=== PATIENT | male | born 1965 | race Caucasian/White ===

== ENCOUNTER 2016-09-19 13:03 | Emergency (ER) | payer MEDICAID | END 2016-09-19 17:25 | disposition home or self-care (01) | LOC: D.ER 13:03 | DX: J06.9 Acute upper respiratory infection, unspecified (principal); J20.9 Acute bronchitis, unspecified; J44.1 Chronic obstructive pulmonary disease with (acute) exacerbation; I10 Essential (primary) hypertension; F17.200 Nicotine dependence, unspecified, uncomplicated ==

== ENCOUNTER 2017-09-12 13:34 | Emergency (ER) | payer SELFPAY ==
[2017-09-12 15:26] LABS: BASOPHILS 1.9 % (0-2); EOSINOPHILS 2.4 % (0-7); HEMATOCRIT 45.2 % (42.0-54.0); HEMOGLOBIN 14.3 g/dL (13.5-17.5); IMMATURE GRANULOCYTES 0.2 % (0-5); LYMPHOCYTES 27.3 % (15-50); MCHC 31.6 g/dL (31.0-37.0); MEAN PLATELET VOLUME 10.5 fL (7.4-10.4); MONOCYTES 11.5 % (2-11); NEUTROPHILS 56.7 % (40-80); PLATELET COUNT 270 10x3/uL (130-400); RBC 4.76 10x6/uL (4.20-6.10); RDW 14.8 % (11.5-14.5); WBC 8.4 10x3/uL (4.8-10.8)
[2017-09-12 15:38] LABS: ALBUMIN 3.7 g/dL (3.4-5.0); ALKALINE PHOSPHATASE 71 U/L (46-116); ALT (SGPT) 24 U/L (10-68); BILIRUBIN - TOTAL 0.26 mg/dL (0.2-1.3); CALC OSMOLALITY 278 mosm/kg (275-300); CALCIUM 8.8 mg/dL (8.5-10.1); CARBON DIOXIDE 32.9 mmol/L (21.0-32.0); CHLORIDE - SERUM 104 mmol/L (98-107); GLUCOSE 83 mg/dL (74-106); POTASSIUM - SERUM 3.8 mmol/L (3.5-5.1); PROTEIN - SERUM 7.1 g/dL (6.4-8.2); SODIUM 141 mmol/L (136-145); UREA NITROGEN 10 mg/dL (7-18); eGFR NON AFRICAN AMERICAN 83 mL/min (90-120)
== END 2017-09-12 17:25 | disposition home or self-care (01) ==
LOC: D.ER 13:34
PROVIDERS: Emergency Medicine
DX: R51 Headache (principal); M50.30 Other cervical disc degeneration, unspecified cervical region; J44.9 Chronic obstructive pulmonary disease, unspecified; I10 Essential (primary) hypertension

== ENCOUNTER → 2018-02-22 13:44 | Outpatient (CLI) | payer OTHER | END | disposition home or self-care (01) | LOC: D.RT 13:44 | DX: Z02.71 Encounter for disability determination (principal) ==

== ENCOUNTER → 2018-08-24 | Emergency (ER) | payer MEDICAID ==
[~2018-08-24] VITALS: Ht 172.7 cm; Wt 96.4 kg
[~2018-08-24] MED LIST: ALBUTEROL SULF8.5 GM INH; ALBUTEROL2.5 MG/3 M INH; BACLOFEN10 MG PO; CELEXA20 MG PO; CYCLOBENZAPRINE10 MG PO; IPRAT-ALBUT 0.5-3 ML UPD; NYAMYC60 GM TP; PHENERGAN DM SYR5 ML PO; SULFAMETHOXAZOL1 TA3 PO; TRAMADOL HCL E100 M1 PO; ULTRAM50 MG PO; ZESTORETIC 20-1 EACH PO
[2018-08-24 18:16] VITALS: Ht 172.7 cm; Wt 96.4 kg
[2018-08-24 19:23] LABS: BASOPHILS 0.3 % (0-2); EOSINOPHILS 1.4 % (0-7); HEMATOCRIT 40.9 % (42.0-54.0); HEMOGLOBIN 13.6 g/dL (13.5-17.5); IMMATURE GRANULOCYTES 0.1 % (0-5); LYMPHOCYTES 14.2 % (15-50); MCH 31.1 pg (26.0-34.0); MCHC 33.3 g/dL (31.0-37.0); MCV 93.6 fL (80.0-100.0); MEAN PLATELET VOLUME 10.4 fL (7.4-10.4); MONOCYTES 9.4 % (2-11); NEUTROPHILS 74.6 % (40-80); PLATELET COUNT 273 10x3/uL (130-400); RBC 4.37 10x6/uL (4.20-6.10); RDW 13.8 % (11.5-14.5); WBC 11.5 10x3/uL (4.8-10.8)
[2018-08-24 19:58] VITALS: BP 123/61
[2018-08-24 19:58] LABS: ALBUMIN 3.6 g/dL (3.4-5.0); ANION GAP 13.6 mmol/L (8-16); BILIRUBIN - TOTAL 0.22 mg/dL (0.2-1.3); CALCIUM 8.8 mg/dL (8.5-10.1); CARBON DIOXIDE 28.2 mmol/L (21.0-32.0); CREATININE - SERUM 1.2 mg/dL (0.6-1.3); POTASSIUM - SERUM 3.8 mmol/L (3.5-5.1); PROTEIN - SERUM 7.3 g/dL (6.4-8.2)
== END | disposition home or self-care (01) ==
LOC: D.ER 18:03
PROVIDERS: Emergency Medicine
DX: L03.317 Cellulitis of buttock (principal); B36.9 Superficial mycosis, unspecified; I10 Essential (primary) hypertension; J44.9 Chronic obstructive pulmonary disease, unspecified; F17.200 Nicotine dependence, unspecified, uncomplicated

== ENCOUNTER 2019-03-18 15:03 | Emergency (ER) | payer MEDICAID ==
[~2019-03-18] VITALS: Ht 172.7 cm; Wt 95.5 kg
[2019-03-18 15:10] VITALS: Ht 172.7 cm; Wt 95.5 kg
[2019-03-18] MEDS ORDERED: ROBAXIN500 MG PO ×2 (17:34→17:40)
[2019-03-18] MEDS ORDERED: TORADOL10 MG PO (17:34)
[2019-03-18 17:50] VITALS: BP 132/89
== END 2019-03-18 17:51 | disposition home or self-care (01) ==
LOC: D.ER 15:03
DX: M62.838 Other muscle spasm (principal); I10 Essential (primary) hypertension; J44.9 Chronic obstructive pulmonary disease, unspecified; F17.210 Nicotine dependence, cigarettes, uncomplicated

== ENCOUNTER 2019-11-08 10:18 | Inpatient (IN) | payer MEDICAID ==
[~2019-11-08] VITALS: Ht 172.7 cm; Wt 99.8 kg
[~2019-11-08 10:18] MED LIST changes: +ROBAXIN500 MG PO; +TORADOL10 MG PO
[2019-11-08 11:00] VITALS: BP 151/82
[2019-11-08 11:05] LABS: CALC OSMOLALITY 278 mosm/kg (275-300); CARBON DIOXIDE 39.3 mmol/L (21.0-32.0); CHLORIDE - SERUM 99 mmol/L (98-107); CREATININE - SERUM 1.1 mg/dL (0.6-1.3); GLUCOSE 104 mg/dL (74-106); POTASSIUM - SERUM 4.4 mmol/L (3.5-5.1); SODIUM 139 mmol/L (136-145); UREA NITROGEN 16 mg/dL (7-18); eGFR NON AFRICAN AMERICAN 73 mL/min (90-120)
[2019-11-08 11:11] LABS: BASOPHILS 0.6 % (0-2); EOSINOPHILS 0.4 % (0-7); HEMATOCRIT 48.5 % (42.0-54.0); HEMOGLOBIN 14.7 g/dL (13.5-17.5); IMMATURE GRANULOCYTES 0.2 % (0-5); LYMPHOCYTES 12.2 % (15-50); MCH 30.2 pg (26.0-34.0); MCHC 30.3 g/dL (31.0-37.0); MCV 99.8 fL (80.0-100.0); MEAN PLATELET VOLUME 10.2 fL (7.4-10.4); MONOCYTES 7.9 % (2-11); NEUTROPHILS 78.7 % (40-80); RBC 4.86 10x6/uL (4.20-6.10); RDW 15.1 % (11.5-14.5); WBC 13.4 10x3/uL (4.8-10.8)
[2019-11-08 11:13] LABS: APTT 24.6 SECONDS (22.8-39.4); INR 0.97 (0.85-1.17); PROTIME 12.9 SECONDS (11.6-15.0)
[2019-11-08 11:17] LABS: PLATELET COUNT 399 10x3/uL (130-400)
[2019-11-08 11:23] LABS: ALBUMIN 4.1 g/dL (3.4-5.0); ALKALINE PHOSPHATASE 69 U/L (30-120); ALT (SGPT) 24 U/L (10-68); BILIRUBIN - TOTAL 0.42 mg/dL (0.2-1.3); CKMB 2.2 U/L (0.0-3.6); CREATINE KINASE 129 UL (21-232); PRO BNP 480 pg/mL (0-125); PROTEIN - SERUM 7.3 g/dL (6.4-8.2)
[2019-11-08 11:24] LABS: TROPONIN-I < 0.017 ng/mL (0.000-0.060)
[2019-11-08 12:00] VITALS: BP 144/90; BP 148/93
--- NOTE | 2019-11-08 13:51 | NUR ---
RECEIVED PT FROM ER. PT IS AAO AND UP AD KAMILA. CALL LIGHT W/I REACH. RR EVEN AND UNLABORED ON 3L 02. BIPAP AT BEDSIDE. NO S/S OF DISTRESS NOTED. PT DENIES ANY NEEDS. PT ORIENTED TO ROOM. WILL CTM.
[2019-11-08 14:45] VITALS: BP 145/64; BMI 33.5
[2019-11-08 16:00] VITALS: BP 137/83
--- NOTE | 2019-11-08 19:44 | NUR ---
PT LYING IN BED AWAKE ALERT AND ORIENTED X4. NO SIGNS OF DISTRESS NOTED. RESPIRATORY IS AT BEDSIDE. CALL LIGHT WITH IN REACH WILL CONTINUE TO MONITOR.
[2019-11-08 20:00] VITALS: BP 127/41
[2019-11-09 04:00] VITALS: BP 124/67; BP 145/72
--- NOTE | 2019-11-09 05:23 | NUR ---
UA COLLECTED AND SENT TO LAB. BI-PAP ON. CALL LIGHT WITH IN REACH
[2019-11-09 06:08] LABS: BILIRUBIN NEGATIVE (NEGATIVE); GLUCOSE NEGATIVE (NEGATIVE); KETONE NEGATIVE (NEGATIVE); NITRITE NEGATIVE (NEGATIVE); SPECIFIC GRAVITY 1.015 (1.005-1.020); UROBILINOGEN NORMAL (NORMAL)
[2019-11-09 06:23] LABS: BASOPHILS 0 % (0-2); EOSINOPHILS 0 % (0-7); HEMATOCRIT 45.1 % (42.0-54.0); HEMOGLOBIN 13.6 g/dL (13.5-17.5); IMMATURE GRANULOCYTES 0.2 % (0-5); LYMPHOCYTES 4.3 % (15-50); MCH 29.8 pg (26.0-34.0); MCHC 30.2 g/dL (31.0-37.0); MCV 98.7 fL (80.0-100.0); MEAN PLATELET VOLUME 10.2 fL (7.4-10.4); MONOCYTES 9.9 % (2-11); NEUTROPHILS 85.6 % (40-80); PLATELET COUNT 378 10x3/uL (130-400); RBC 4.57 10x6/uL (4.20-6.10); RDW 14.9 % (11.5-14.5)
[2019-11-09 06:39] LABS: WBC 9.8 10x3/uL (4.8-10.8)
[2019-11-09 06:50] LABS: ALBUMIN 3.6 g/dL (3.4-5.0); ALKALINE PHOSPHATASE 58 U/L (30-120); ALT (SGPT) 20 U/L (10-68); BILIRUBIN - TOTAL 0.23 mg/dL (0.2-1.3); CALC OSMOLALITY 275 mosm/kg (275-300); CALCIUM 8.9 mg/dL (8.5-10.1); CARBON DIOXIDE 36.2 mmol/L (21.0-32.0); CHLORIDE - SERUM 99 mmol/L (98-107); GLUCOSE 99 mg/dL (74-106); MAGNESIUM - SERUM 2.4 mg/dL (1.8-2.4); PHOSPHOROUS 5.9 mg/dL (2.5-4.9); PROTEIN - SERUM 6.5 g/dL (6.4-8.2); SODIUM 137 mmol/L (136-145); UREA NITROGEN 18 mg/dL (7-18); eGFR NON AFRICAN AMERICAN 82 mL/min (90-120)
[2019-11-09 06:54] LABS: POTASSIUM - SERUM 5.3 mmol/L (3.5-5.1)
[2019-11-09 08:56] VITALS: BP 120/71
[2019-11-09 10:48] VITALS: Ht 172.7 cm; Wt 99.8 kg
--- NOTE | 2019-11-09 13:44 | NUR ---
I have reviewed this patient and I concur with the Shift Assessment completed by the Licensed Practical Nurse today this shift.
[2019-11-09 13:50] VITALS: BP 127/74
[2019-11-09] MEDS ORDERED: AZITHROMYCIN500 MG PO (15:42)
[2019-11-09] MEDS ORDERED: STERAPRED DS 1010 MG PO (15:42)
--- NOTE | 2019-11-09 16:18 | NUR ---
PT DEMANDING TO LEAVE. NOTIFIED GWEN MATHEWS WHO STATED SHE WOULD PLACE DISCHARGE ORDER. PT STATED HE WOULD WAIT FOR ME TO PROVIDE DISCHARGE PAPERS. PT SIGNED PROPER DISCHARGE INSTRUCTIONS AND REMOVED ALL VALUABLES FROM THE ROOM. PIV REMOVED WITH CATHETER TIP FULLY INTACT.
--- NOTE | 2019-11-13 11:52 | MORECARE ---
CASE MANAGEMENT DISCHARGE SUMMARY PATIENT: JOHANNA ZARAGOZA UNIT: [id number] ADM DATE: 11/08/19 AGE: 54 : 61 SEX: M ROOM/BED: D.2109 AUTHOR: TALA BASSETT PHYSICIAN: REFERRING PHYSICIAN: MILLIE DOSS MD DATE OF SERVICE: 11/13/19 Discharge Plan Patient Name: JOHANNA [facility]ARAGOZA [facility] [facility] 1965 Planned Disposition: Anticipated Discharge Date: Discharge Date: 11/09/2019 Expected LOS: 0 Initial Reviewer: [email or web address] Initial Review Date: 11/13/2019 Generated: 11/13/19 12:52 pm Patient Name: JOHANNA ZARAGOZA Page [id number] at 1152 All edits/amendments must be made on the electronic document DICTATION DATE: 11/13/19 1152 MUSCULOSKELETAL PHYSIOTHERAPIST: LUIGI 11/13/19 1152 RPT#: [id number] DC DATE:11/09/19 STATUS: DIS IN [facility] [address] [place] [address] END OF REPORT
== END 2019-11-09 16:19 | disposition home or self-care (01) | DRG 189 ==
LOC: D.ER 10:18 → D.M2 11:46
PROVIDERS: Family Medicine; ADMIT Internal Medicine Nephrology; ATTEND Internal Medicine Nephrology
DX: J96.22 Acute and chronic respiratory failure with hypercapnia (principal); J44.0 Chronic obstructive pulmonary disease with (acute) lower respiratory infection; J44.1 Chronic obstructive pulmonary disease with (acute) exacerbation; J96.21 Acute and chronic respiratory failure with hypoxia; I10 Essential (primary) hypertension; G89.29 Other chronic pain; M54.9 Dorsalgia, unspecified; G47.33 Obstructive sleep apnea (adult) (pediatric); J20.9 Acute bronchitis, unspecified; J30.9 Allergic rhinitis, unspecified; E87.5 Hyperkalemia

== ENCOUNTER 2020-11-07 15:22 | Emergency (ER) | payer MEDICAID ==
[~2020-11-07] VITALS: Ht 172.7 cm; Wt 90.9 kg
[~2020-11-07 15:22] MED LIST changes: +AZITHROMYCIN500 MG PO; +STERAPRED DS 1010 MG PO
[2020-11-07 15:42] VITALS: BP 117/78; Ht 172.7 cm; Wt 90.9 kg
== END 2020-11-07 17:28 | disposition left against medical advice (07) ==
LOC: D.ER 15:22
DX: R07.89 Other chest pain (principal)